=== PATIENT | female | born 1995 | race Caucasian/White ===

== ENCOUNTER → 2020-02-27 17:06 | Outpatient (CLI) | payer BC, SELFPAY ==
--- NOTE | 2020-02-27 17:10 | MRI_ITS ---
STUDY: MRI BRAIN WITH AND WITHOUT CONTRAST REASON FOR EXAM: Female, 25 years old. 6th nerve palsy, L orbit pain, diploplia x 2 weeks TECHNIQUE: Standardized multiplanar fat and water weighted pulse sequences were obtained. IV 19 cc dotarem was administered for the contrast portion of the examination. COMPARISON: None. FINDINGS: Normal size of the ventricles and extra-axial spaces for the patient''s age. Normal white matter tracts of the supratentorial brain. Normal bilateral basal ganglia. Normal thalami. There is no extra-axial fluid accumulation. Normal flow voids within the major intracranial circulation suggesting patency by spin echo criteria. Normal venous enhancement. There is no enhancing intra-axial or extra-axial abnormality. Normal sella turcica, pituitary gland, infundibular stalk, optic chiasm and hypothalamus. Normal tectal plate and pineal gland. Normal midbrain, cj and medulla. Normal cerebellum. Normal basal cisterns. Normal bilateral temporal bones. Normal bilateral internal auditory canals. There is diffuse smooth enlargement and enhancement of the left medial rectus muscle. There is minor intraconal fat inflammation without fluid collections. Remainder of the extraocular muscles are normal. Globes and optic nerves are normal. MRI/Brain W/WO Contrast IMPRESSION: 1. Normal brain. 2. Enlarged left medial rectus and intraorbital inflammation. 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 Expedited ophthalmology referral is advised. Electronically Signed: Narcisa Khalil, at 19:10 EST Tel , Service support ,
== END ==
PROVIDERS: PCP Family Medicine; Referring Provider Ophthalmology; Visit Provider Ophthalmology
DX: H49.22 Sixth [abducent] nerve palsy, left eye (principal)
CPT/HCPCS: 70553; A9575